=== PATIENT | female | born 1955 ===

== ENCOUNTER 2024-05-07 16:09 | Outpatient (CLI) | payer MEDICARE, BC, SELFPAY ==
[2024-05-07 12:33] LABS: Abs Immature Grans 0.03 10^3/uL (0.0-0.06); Absolute Basophil Count 0.05 10^3/uL (0.0-0.2); Absolute Eosinophil Count 0.21 10^3/uL (0.0-0.7); Absolute Monocyte Count 0.49 10^3/uL (0.1-0.8); Basophils % 0.6 %; Eosinophils % 2.4 %; Immature Grans % 0.3 %; Lymphocytes % 21.9 %; MCH 30.2 pg (27.0-33.0); MCHC 32.5 % (32.0-36.0); MCV 93 fL (80-95); MPV 8.6 fL (8.0-11.0); Monocytes % 5.6 %; Neutrophils % 69.2 %; Platelet Count 380 10^3/uL (130-400); RBC 4.31 10^6/uL (3.93-5.22); RDW 13.4 % (11.7-14.6); RDW-SD 45.6 fL; WBC 8.68 10^3/uL (4.4-10.8)
[2024-05-07 13:30] LABS: ALT 37 U/L (14-59); Albumin 3.6 g/dL (3.4-5.0); Alkaline Phosphatase 103 U/L (46-116); Anion Gap 9.2 mmol/L (3-11); BUN 15 mg/dL (7-18); Bilirubin, Total 0.38 mg/dL (0.2-1.0); CO2 22.8 mmol/L (21.0-32.0); CREATININE 0.9 mg/dL (0.55-1.02); Chloride 109 mmol/L (98-107); Glucose 136 mg/dL (74-106); Magnesium 2.1 mg/dL (1.8-2.4); Potassium 4.6 mmol/L (3.5-5.1); Sodium 141 mmol/L (136-145); Total Protein 6.8 g/dL (6.4-8.2)
[2024-05-07 13:44] LABS: AST 8 U/L (15-37)
== END 2024-05-07 16:10 | disposition home or self-care (01) ==
LOC: LBO 16:10
PROVIDERS: Visit Provider Internal Medicine Medical Oncology
DX: C34.31 Malignant neoplasm of lower lobe, right bronchus or lung (principal)
CPT/HCPCS: 36415; 80053; 83735; 85025

== ENCOUNTER 2025-04-12 01:28 | Outpatient (CLI) | payer MEDICARE, BC, SELFPAY ==
[2025-04-12 07:39] LABS: Abs Immature Grans 0.19 10^3/uL (0.0-0.06); HCT 38.7 % (36.0-46.0); HGB 12.1 g/dL (11.2-15.7); Immature Grans % 1.1 %; MCH 28.3 pg (27.0-33.0); MCHC 31.3 % (32.0-36.0); MCV 90 fL (80-95); MPV 8.3 fL (8.0-11.0); Platelet Count 382 10^3/uL (130-400); RBC 4.28 10^6/uL (3.93-5.22); RDW 13.2 % (11.7-14.6); RDW-SD 43.8 fL; WBC 16.57 10^3/uL (4.4-10.8)
[2025-04-12 07:56] LABS: Magnesium 2.3 mg/dL (1.6-2.6)
[2025-04-12 08:07] LABS: ALT 28 U/L (10-49); AST 26 U/L (<34); Albumin 4.7 g/dL (3.2-5.0); Alkaline Phosphatase 117 U/L (46-116); Anion Gap 9.3 mmol/L (3-11); BUN 33 mg/dL (9-23); Bilirubin, Total 0.50 mg/dL (0.2-1.2); CO2 23.7 mmol/L (20.0-31.0); Calcium 11.6 mg/dL (8.3-10.6); Chloride 113 mmol/L (98-107); Glucose 101 mg/dL (74-106); Potassium 4.4 mmol/L (3.5-5.1); Sodium 146 mmol/L (136-145); Total Protein 7.7 g/dL (5.7-8.2)
== END 2025-04-12 01:29 | disposition home or self-care (01) ==
PROVIDERS: Visit Provider Internal Medicine Medical Oncology
DX: C34.31 Malignant neoplasm of lower lobe, right bronchus or lung (principal)
CPT/HCPCS: 36415; 80053; 83735; 85025

== ENCOUNTER 2025-04-19 00:43 | Outpatient (CLI) | payer MEDICARE, BC, SELFPAY ==
[2025-04-19 10:46] LABS: Abs Immature Grans 0.06 10^3/uL (0.0-0.06); HCT 34.9 % (36.0-46.0); HGB 11.6 g/dL (11.2-15.7); Immature Grans % 0.7 %; MCH 30.1 pg (27.0-33.0); MCHC 33.2 % (32.0-36.0); MCV 90 fL (80-95); MPV 8.6 fL (8.0-11.0); Platelet Count 354 10^3/uL (130-400); RBC 3.86 10^6/uL (3.93-5.22); RDW 12.9 % (11.7-14.6); RDW-SD 41.8 fL; WBC 9.23 10^3/uL (4.4-10.8)
[2025-04-19 10:58] LABS: Magnesium 2.3 mg/dL (1.6-2.6)
[2025-04-19 11:00] LABS: ALT 28 U/L (10-49); AST 34 U/L (<34); Albumin 4.4 g/dL (3.2-5.0); Alkaline Phosphatase 102 U/L (46-116); Anion Gap 8 mmol/L (3-11); BUN 27 mg/dL (9-23); Bilirubin, Total 0.5 mg/dL (0.2-1.2); CO2 27.0 mmol/L (20.0-31.0); Calcium 11.4 mg/dL (8.3-10.6); Chloride 105 mmol/L (98-107); Glucose 103 mg/dL (74-106); Potassium 4.0 mmol/L (3.5-5.1); Sodium 140 mmol/L (136-145); Total Protein 7.2 g/dL (5.7-8.2)
== END 2025-04-19 00:44 | disposition home or self-care (01) ==
LOC: LBO 00:43
PROVIDERS: Visit Provider Internal Medicine Medical Oncology
DX: C34.31 Malignant neoplasm of lower lobe, right bronchus or lung (principal)
CPT/HCPCS: 36415; 80053; 83735; 85025

== ENCOUNTER 2025-04-26 01:24 | Outpatient (CLI) | payer MEDICARE, BC, SELFPAY ==
[2025-04-26 07:50] LABS: Abs Immature Grans 0.05 10^3/uL (0.0-0.06); HCT 32.1 % (36.0-46.0); HGB 10.2 g/dL (11.2-15.7); Immature Grans % 0.9 %; MCH 29.0 pg (27.0-33.0); MCHC 31.8 % (32.0-36.0); MCV 91 fL (80-95); MPV 8.4 fL (8.0-11.0); Platelet Count 262 10^3/uL (130-400); RBC 3.52 10^6/uL (3.93-5.22); RDW 13.2 % (11.7-14.6); RDW-SD 42.3 fL; WBC 5.73 10^3/uL (4.4-10.8)
[2025-04-26 08:06] LABS: Magnesium 2.0 mg/dL (1.6-2.6)
[2025-04-26 08:08] LABS: ALT 22 U/L (10-49); AST 23 U/L (<34); Albumin 3.9 g/dL (3.2-5.0); Alkaline Phosphatase 87 U/L (46-116); Anion Gap 6.4 mmol/L (3-11); BUN 21 mg/dL (9-23); Bilirubin, Total 0.4 mg/dL (0.2-1.2); CO2 25.6 mmol/L (20.0-31.0); Calcium 10.6 mg/dL (8.3-10.6); Chloride 112 mmol/L (98-107); Glucose 83 mg/dL (74-106); Potassium 4.0 mmol/L (3.5-5.1); Sodium 144 mmol/L (136-145); Total Protein 6.4 g/dL (5.7-8.2)
== END 2025-04-26 01:25 | disposition home or self-care (01) ==
LOC: LBO 01:25
PROVIDERS: Visit Provider Internal Medicine Medical Oncology
DX: C34.31 Malignant neoplasm of lower lobe, right bronchus or lung (principal)
CPT/HCPCS: 36415; 80053; 83735; 85025

== ENCOUNTER 2025-04-26 13:25 | Outpatient (CLI) | payer MEDICARE, BC, SELFPAY ==
--- NOTE | 2025-04-26 13:30 | RT.EKG_ITS ---
APPROVED REPORT Exam: Resting ECG Reason for Exam: New Afib Patient Location: O HR:72 bpm ECG Measurements Heart Rate 72 AXIS NH 159 P 35 QRSd 83 QRS -27 QT 366 T 11 QTc 401 Conclusion Sinus rhythm...normal P axis, V-rate 50- 99 Probable left atrial enlargement...P >50mS, <-0.10mV V1 Borderline left axis deviation...QRS axis (-15,-29) Minimal ST elevation, lateral leads...ST >0.06mV, I aVL V5 V6 Baseline wander in lead(s) V1,V5
== END 2025-04-26 13:26 | disposition home or self-care (01) ==
PROVIDERS: Visit Provider Nurse Practitioner Family
DX: I49.9 Cardiac arrhythmia, unspecified (principal)
CPT/HCPCS: 93005; 93010